=== PATIENT | male | born 1965 | race Caucasian/White ===

== ENCOUNTER 2024-05-24 08:54 | Emergency (ER) | payer MEDICARE, OTHER, SELFPAY ==
[2024-05-24 09:00] VITALS: BP 124/87
[2024-05-24 09:15] VITALS: BMI 32.9
--- NOTE | 2024-05-24 09:43 | ED.GENMED ---
History of Present Illness
General
Chief Complaint: Fall
Source: patient
Exam Limitations: none
Time Seen by Provider: 05/24/24 08:56
Nursing documentation reviewed up to this point in time: agreed with
History of Present Illness
History of Present Illness:
Patient is a 58-year-old male with history of MS and TBI from [facility] who presents to the ER for fall. Patient reports he was walking and lost his balance because of MS and fell face forward hitting his right knee
and his head. He denies any headache he denies any neck pain. He has no complaints. He is not on blood thinners.
Past History
Past History
ED Past Medical History: Other (Traumatic brain injury, multiple sclerosis)
ED Past Surgical History: Orthopedic and Other (Craniotomy, tracheostomy)
Social History
Tobacco: Non-smoker
Alcohol: None
Drug: None
Personal: Single
Living: assisted living
Review of Systems
Review of Systems
Allergies reviewed?: Yes
All Other Systems: ROS reviewed and negative except as documented in HPI and ROS
Constitutional: Reports no symptoms
Respiratory: Reports no symptoms
Cardiac: Reports no symptoms
ABD/GI: Reports no symptoms
: Reports no symptoms
Musculoskeletal: Reports no symptoms
Skin: Reports no symptoms
Neurological: Reports no symptoms
Psychiatric: Reports no symptoms
Phy Exam
General Physical Exam
General Presentation: no apparent distress
General age: appears stated age
General Skin: warm and dry
General Habitus: normal
General Mental: alert
General Hydration: appears well hydrated
Neurological Exam
Neurological Exam: alert and oriented x3
Musculoskeletal Exam
Musculoskeletal Exam: full ROM and other (No obvious head injury on exam no bony cervical spine thoracic or lumbar tenderness full range of motion to extremities small abrasion to right knee however no bony tenderness full range of motion to knee.)
Skin Exam
Skin Exam: normal color and warm/dry
Psychiatric Exam
Psychiatric Exam: normal mood/affect
Course
Orders/Labs/Results
Orders:
Orders
05/24/24 09:42
CT Head W/o Iv Contrast Urgent
Comment:
Reason For Exam: trauma
05/24/24 09:43
CT Cervical Spine W/o Iv Contr Urgent
Comment:
Reason For Exam: trauma
Vital Signs
Initial and Last Documented VS:
Initial Vital Signs
Temp Pulse Resp BP Pulse Ox
97.5 F 77 18 124/87 97
05/24/24 09:00 05/24/24 09:00 05/24/24 09:00 05/24/24 09:00 05/24/24 09:00
Last Documented Vital Signs
Temp Pulse Resp BP Pulse Ox
97.5 F 77 18 124/87 97
05/24/24 09:00 05/24/24 09:00 05/24/24 09:00 05/24/24 09:00 05/24/24 09:00
MDM/Problems Addressed
Differential Diagnosis Includes:
not limited to: abrasion, head injury
MDM/Problems Addressed:
Patient is a 58-year-old male with MS/TBI at residential facility presented for fall. He initially refused to come to the ER as he had no injuries or no complaints however did agree. Patient presents awake alert no acute distress he denies hitting
his head he denies any headache or neck pain. Denies any back pain. Patient has a small abrasion to his right leg however no other concerning findings on exam. CAT scan head and cervical spine was done and unremarkable. Patient is had no
complaints here. He is unsure of his last tetanus which was updated.
*Critical Care Note
Total Time (30-74mins, 75-104mins- exclusive of procedures): Not Applicable
ED Attending Note
-
Portions of this chart may have been created with voice recognition software.� Occasional wrong word or��sound alike� substitutions may have occurred due to the inherent limitations of voice recognition software.
Discharge Plan
Departure
Patient Disposition: Home (Routine Discharge)
Date of Disposition: 05/24/24
Time of Disposition: 10:55
Patient with high blood pressure during this ER visit?: No
Condition: Fair
Covid-19: Not Applicable
Discharge Problem:
Fall, Abrasion
Instructions: Preventing falls in adults, Skin Abrasions (DC)
Prescriptions:
No Action
Baclofen
10 mg PO HS
Citalopram
40 mg PO DAILY
Copaxone
20 mg SC MOWEFR
Lyrica:
50 mg PO BID
Multivitamin
1 tab PO DAILY
Vit B12/Pyridoxine HCl/Vit B1
500 mg PO DAILY
loperamide 2 MG capsule
2 mg PO PRN PRN (Reason: loose stools)
trazodone 50 MG tablet
50 mg PO HS
sumatriptan succinate 50 MG tablet
50 mg PO BIDPRN PRN (Reason: headache)
pantoprazole 20 MG tablet,delayed release (DR/EC)
20 mg PO DAILY
lorazepam 0.5 MG tablet
0.5 mg PO BIDPRN PRN (Reason: anxiety)
pseudoephedrine HCl [Sudogest] 30 MG tablet
30 mg PO TIDPRN PRN (Reason: congestion)
albuterol sulfate [Ventolin HFA] 90 MCG/PUFF HFA aerosol inhaler
2 puff inhalation Q4HPRN PRN (Reason: wheezing)
oxybutynin chloride 5 MG tablet
5 mg PO DAILY
prazosin 2 MG capsule
2 mg PO HS
cholecalciferol (vitamin D3) [Vitamin D3] 1,000 UNIT capsule
1,000 unit PO DAILY
eszopiclone 2 MG tablet
2 mg PO HS
acetaminophen [Tylenol] 325 MG capsule
650 mg PO Q4HPRN PRN (Reason: pain/fever)
ondansetron [Zuplenz] 4 MG film
4 mg PO Q8HPRN PRN (Reason: nausea)
topiramate [Trokendi XR] 25 MG capsule,extended release 24hr
75 mg PO BID
Cough Syrup 100mg/5ml
200 mg PO Q4H PRN (Reason: cough)
Referrals:
UNKNOWN - PT DOES,NOT KNOW [Family Provider] -
Activity Restrictions/Additional Instructions:
Patient had no obvious injuries on exam. Patient did have a CAT scan of his head and neck which were negative.
Patient was updated on tetanus. Abrasion to right knee should be washed twice a day with soap and water pat dry and apply small antibiotic open to the area. He should return if any worsening of symptoms.
Interventions
Interventions:
*Risk Screen - Suicide Last Done: 05/24/24 09:00
*General Assessment Last Done: 05/24/24 09:00
*Neglect/Abuse Screening Last Done: 05/24/24 09:00
*ED COVID-19 Vaccine History Last Done: 05/24/24 09:00
ED-Musculoskeletal Assessment Last Done: 05/24/24 09:13
ED- Neurological Assessment Last Done: 05/24/24 09:13
ED-Skin Assessment Last Done: 05/24/24 09:50
Discharge Date and Time
Print Language: IRISH
[2024-05-24] MEDS: ADACEL 0.5 ML IM (11:16)
[2024-05-24 12:38] VITALS: BP 120/74
[2024-05-24 15:10] VITALS: BP 116/73
== END 2024-05-24 15:36 | disposition home or self-care (01) ==
LOC: EMR 08:54
PROVIDERS: EMERGENCY PHYSICIAN Emergency Medicine
DX: S80.211A Abrasion, right knee, initial encounter (principal); W19.XXXA Unspecified fall, initial encounter; G35 Multiple sclerosis; Z87.820 Personal history of traumatic brain injury; Z23 Encounter for immunization
CPT/HCPCS: 90471; 99284; 70450; 72125; 90715

== ENCOUNTER 2024-12-28 10:57 | Emergency (ER) | payer MEDICARE, OTHER, SELFPAY ==
[2024-12-28 10:57] VITALS: BP 115/82
[2024-12-28 10:58] VITALS: BP 115/82
[2024-12-28 11:00] VITALS: BP 120/87
--- NOTE | 2024-12-28 11:02 | ED.GENMED ---
History of Present Illness
General
Chief Complaint: Fall
Source: patient and ambulance crew
Exam Limitations: none
Time Seen by Provider: 12/28/24 11:01
History of Present Illness
History of Present Illness:
59yoM with a history of multiple sclerosis and TBI presenting via EMS for evaluation after an unwitnessed fall about an hour ago. Patient is a resident at [facility]. He was in his wheelchair and stood up attempting
to use the urinal when he lost his balance and fell. His roommate alerted prison staff about the fall. He did strike his head but did not lose consciousness. Patient is reporting a headache. He was placed in a cervical collar prehospital
although denies any neck pain. He is otherwise asymptomatic and denies any abdominal pain, back pain, chest pain. He does not take any blod thinners.
Past History
Past History
ED Past Medical History: Other (Traumatic brain injury, multiple sclerosis)
ED Past Surgical History: Orthopedic and Other (Craniotomy, tracheostomy)
Social History
Tobacco: Non-smoker
Alcohol: None
Drug: None
Personal: Single
Living: assisted living
Phy Exam
General Physical Exam
General Presentation: well appearing and no apparent distress
General Skin: warm and dry
General Habitus: normal
General Mental: alert
ENT Exam
ENT Exam: normocephalic and other (Small abrasion noted to L forehead. Cervical collar in place.)
Eye Exam
Eye Exam: PERRL
Pulmonary Exam
Pulmonary Exam: lungs clear, no respiratory distress, no rales, no crackles and no rhonchi
Gastrointestinal Exam
Gastrointestinal Exam: non tender, soft and non distended
Neurological Exam
Neurological Exam: alert
[place] Coma Scale
Eye Opening: Spontaneous
Verbal Response: Oriented
Motor Response: Obeys Commands
GCS Total Score: 15
Musculoskeletal Exam
Musculoskeletal Exam: other (No T/L spine tenderness)
Skin Exam
Skin Exam: normal color and warm/dry
Psychiatric Exam
Psychiatric Exam: normal mood/affect
Course
Orders/Labs/Results
Orders:
Orders
12/28/24 11:01
CT Cervical Spine W/o Iv Contr Urgent
Comment:
Reason For Exam: unwitnessed fall
CT Head W/o Iv Contrast Urgent
Comment:
Reason For Exam: head injury
Vital Signs
Initial and Last Documented VS:
Initial Vital Signs
BP
115/82
12/28/24 10:57
Last Documented Vital Signs
Temp Pulse Resp BP Pulse Ox
97.5 F 81 18 120/87 94
12/28/24 11:08 12/28/24 11:08 12/28/24 10:58 12/28/24 11:00 12/28/24 11:30
MDM/Problems Addressed
Differential Diagnosis Includes:
59yoM here after a mechanical fall 1 hour [employer]. Stood up to try to use the urinal and fell. Hx of TBI and MS. Arrives with cervical collar in place. No blood thinners. VSS. He is awake, alert, with a GCS of 15. There is a small abrasion to the L
forehead. No other external signs of head trauma on exam. Differential diagnosis includes but is not limited to: closed head injury, fracture, intracranial hemorrhage
Initial ED plan: Check CT head and cervical spine.
*Pulse Oximetry
Patient hypoxic: no (97%)
*Critical Care Note
Total Time (30-74mins, 75-104mins- exclusive of procedures): Not Applicable
Update Note
Update Note:
Imaging reveals severe degenerative disc disease without any acute traumatic injuries. There is a large 6.2 cm solid mass at the right lobe of the thyroid gland. Chart reviewed and this has been present on prior images dating back to at least an
MRI cervical spine in 2021. Cervical collar removed. Patient stable for discharge back to his residential facility.
ED Attending Note
-
Portions of this chart may have been created with voice recognition software.� Occasional wrong word or��sound alike� substitutions may have occurred due to the inherent limitations of voice recognition software.
Discharge Plan
Departure
Patient Disposition: Home (Routine Discharge)
Date of Disposition: 12/28/24
Time of Disposition: 13:27
Patient with high blood pressure during this ER visit?: No
Discharge Problem:
Ground-level fall, Closed head injury, Thyroid mass
Instructions: Head Injury in Adults (DC), Preventing falls in adults
Prescriptions:
No Action
Baclofen
10 mg PO HS
Citalopram
40 mg PO DAILY
Copaxone
20 mg SC MOWEFR
Lyrica:
50 mg PO BID
Multivitamin
1 tab PO DAILY
Vit B12/Pyridoxine HCl/Vit B1
500 mg PO DAILY
loperamide 2 MG capsule
2 mg PO PRN PRN (Reason: loose stools)
trazodone 50 MG tablet
50 mg PO HS
sumatriptan succinate 50 MG tablet
50 mg PO BIDPRN PRN (Reason: headache)
pantoprazole 20 MG tablet,delayed release (DR/EC)
20 mg PO DAILY
lorazepam 0.5 MG tablet
0.5 mg PO BIDPRN PRN (Reason: anxiety)
pseudoephedrine HCl [Sudogest] 30 MG tablet
30 mg PO TIDPRN PRN (Reason: congestion)
albuterol sulfate [Ventolin HFA] 90 MCG/PUFF HFA aerosol inhaler
2 puff inhalation Q4HPRN PRN (Reason: wheezing)
oxybutynin chloride 5 MG tablet
5 mg PO DAILY
prazosin 2 MG capsule
2 mg PO HS
cholecalciferol (vitamin D3) [Vitamin D3] 1,000 UNIT capsule
1,000 unit PO DAILY
eszopiclone 2 MG tablet
2 mg PO HS
acetaminophen [Tylenol] 325 MG capsule
650 mg PO Q4HPRN PRN (Reason: pain/fever)
ondansetron [Zuplenz] 4 MG film
4 mg PO Q8HPRN PRN (Reason: nausea)
topiramate [Trokendi XR] 25 MG capsule,extended release 24hr
75 mg PO BID
Cough Syrup 100mg/5ml
200 mg PO Q4H PRN (Reason: cough)
Referrals:
Fernando Ortiz DO [Family Provider, Internal Medicine]
Activity Restrictions/Additional Instructions:
Please follow-up with your family doctor. Return to the ER with any new or worsening symptoms.
Interventions
Interventions:
*Risk Screen - Suicide Last Done: 12/28/24 11:08
*General Assessment Last Done: 12/28/24 11:08
*Neglect/Abuse Screening Last Done: 12/28/24 11:08
*ED- Fall Risk Assessment Last Done: 12/28/24 11:29
*ED COVID-19 Vaccine History Last Done: 12/28/24 11:29
ED-Musculoskeletal Assessment Last Done: 12/28/24 11:30
ED- Neurological Assessment Last Done: 12/28/24 11:29
ED-Skin Assessment Last Done: 12/28/24 11:29
Discharge Date and Time
Print Language: BENGALI
[2024-12-28 12:00] VITALS: BP 123/90
== END 2024-12-28 14:37 | disposition home or self-care (01) ==
LOC: EMR 10:57
PROVIDERS: EMERGENCY PHYSICIAN Emergency Medicine; FAMILY PHYSICIAN Internal Medicine Geriatric Medicine
DX: S09.90XA Unspecified injury of head, initial encounter (principal); E07.9 Disorder of thyroid, unspecified; W01.0XXA Fall on same level from slipping, tripping and stumbling without subsequent striking against object, initial encounter; G35 Multiple sclerosis
CPT/HCPCS: 99284; 70450; 72125